=== PATIENT | female | born 1965 | race Caucasian/White ===

== ENCOUNTER 2022-10-13 10:29 | Outpatient (CLI) | payer OTHER | END 2022-10-13 10:32 | disposition home or self-care (01) | LOC: SONOGRAMA 10:29 | PROVIDERS: ATTEND Pathology Anatomic Pathology & Clinical Pathology | DX: D34 Benign neoplasm of thyroid gland (principal); E04.9 Nontoxic goiter, unspecified; E04.8 Other specified nontoxic goiter ==

== ENCOUNTER 2024-11-07 13:29 | Outpatient (CLI) | payer OTHER | END 2024-11-07 13:31 | disposition home or self-care (01) | LOC: SONOGRAMA 13:29 | PROVIDERS: ATTEND Pathology Anatomic Pathology | DX: D34 Benign neoplasm of thyroid gland (principal); E07.89 Other specified disorders of thyroid; E04.2 Nontoxic multinodular goiter ==